=== PATIENT | female | born 1990 | race Caucasian/White ===

== ENCOUNTER 2022-02-18 11:33 | Inpatient (IN) | payer OTHER ==
[~2022-02-18] VITALS: Ht 180.3 cm; Wt 106.6 kg
[2022-02-18 11:55] VITALS: BP 122/79
[2022-02-18] MEDS ORDERED: PRENTAB9 PO (11:59)
[2022-02-18] MEDS ORDERED: HOME MED LIST COMPLETE! XX SCH (12:15)
[2022-02-18] MEDS ORDERED: LACTATED RINGER'S 1000 ML IV STA (15:08)
[2022-02-18] MEDS ORDERED: OXYTOCIN DRIP 30 UNITS in IV 1 EA IV PRN ×4 (15:10)
[2022-02-18] MEDS ORDERED: CARBOPROST TROMETHAMINE 250 MCG/ML AMP IM PRN (15:10)
[2022-02-18] MEDS ORDERED: TRANEXAMIC ACID INJection 1,000 MG in NS 100 ML IV PRN (15:10)
[2022-02-18] MEDS ORDERED: LIDOCAINE 1% MDV 20ML VIAL INFIL PRN (15:10)
[2022-02-18] MEDS ORDERED: OXYTOCIN INJ 10 UNITS/ML VIAL (J2590) IM PRN (15:10)
[2022-02-18] MEDS ORDERED: METHYLERGONOVINE MALEATE 0.2 MG/ML VIAL (J2210) IM PRN (15:10)
[2022-02-18 15:49] VITALS: BP 106/56
[2022-02-18 16:04] LABS: BASO # 0.1 10^3/uL (0.0-0.2); BASO % 0.4 % (0.0-1.0); EOS % 0.1 % (0.0-3.0); HEMATOCRIT 37.9 % (36.0-47.0); HEMOGLOBIN 12.4 g/dl (12.0-15.5); LYMPH # 1.2 10^3/uL (1.5-5.0); LYMPH % 6.3 % (24.0-44.0); MEAN CORPUSCULAR HGB CONC 32.7 g/dl (32.0-36.5); MEAN CORPUSCULAR VOLUME 88.8 fl (80.0-96.0); MONO # 0.9 10^3/uL (0.0-0.8); MONO % 4.9 % (2.0-8.0); NEUTROPHILS # 15.7 10^3/uL (1.5-8.5); NEUTROPHILS % 85.9 % (36.0-66.0); PLATELET COUNT, AUTOMATED 278 10^3/uL (150-450); RED BLOOD COUNT 4.27 10^6/uL (4.00-5.40); WHITE BLOOD COUNT 18.3 10^3/uL (4.0-10.0)
[2022-02-18] MEDS ORDERED: PROMETHAZINE 25MG/ML 1ML VIAL IV ONE (18:35)
[2022-02-18] MEDS ORDERED: BUTORPHANOL 2 MG/ML INJ (J0595) IV ONE (18:35)
[2022-02-18 19:05] VITALS: BP 109/57
[2022-02-18 20:52] VITALS: BP 114/57
[2022-02-18 21:40] VITALS: BP 113/56
[2022-02-18] MEDS ORDERED: LR 1,000 ML IV SCH (23:35)
[2022-02-18] MEDS ORDERED: OXYTOCIN DRIP 30 UNITS in IV 1 EA IV SCH (23:35)
[2022-02-19] VITALS (8 sets, daily range): BP systolic 99–132; BP diastolic 55–77
[2022-02-19] MEDS ORDERED: ACETAMINOPHEN TAB 650MG DOSE (2X325MG) PO PRN (05:30)
[2022-02-19] MEDS ORDERED: DIBUCAINE 1% OINTMENT 30GM TOP PRN (05:30)
[2022-02-19] MEDS ORDERED: LR 1,000 ML IV SCH (05:30)
[2022-02-19] MEDS ORDERED: OXYTOCIN DRIP 30 UNITS in IV 1 EA IV SCH ×4 (05:30)
[2022-02-19] MEDS ORDERED: ANUSOL HC CREAM 30GM TOP PRN (05:30)
[2022-02-19] MEDS ORDERED: ACETAMINOPHEN 500 MG TAB PO PRN (05:30)
[2022-02-19] MEDS ORDERED: IBUPROFEN 800 MG TAB PO PRN (05:30)
[2022-02-19] MEDS ORDERED: RHOGAM 300 MCG (1500 IU) INJ (J2790) IM SCH (05:30)
[2022-02-19] MEDS ORDERED: IBUPROFEN 600MG TAB PO PRN (05:30)
[2022-02-19] MEDS ORDERED: METHYLERGONOVINE MALEATE 0.2 MG TAB PO PRN (05:30)
[2022-02-19] MEDS: PRENATAL VITAMINS CHEWABLE TABLET PO SCH (10:03)
[2022-02-19] MEDS: DOCUSATE SODIUM 100MG CAPSULE PO SCH ×2 (10:03→20:44)
[2022-02-20 05:40] VITALS: BP 106/54
[2022-02-20 06:43] LABS: HEMATOCRIT 31.9 % (36.0-47.0); HEMOGLOBIN 10.3 g/dl (12.0-15.5); MEAN CORPUSCULAR HEMOGLOBIN 29.3 pg (27.0-33.0); MEAN CORPUSCULAR HGB CONC 32.3 g/dl (32.0-36.5); MEAN CORPUSCULAR VOLUME 90.6 fl (80.0-96.0); PLATELET COUNT, AUTOMATED 279 10^3/uL (150-450); RED BLOOD COUNT 3.52 10^6/uL (4.00-5.40); WHITE BLOOD COUNT 21.5 10^3/uL (4.0-10.0)
[2022-02-20] MEDS: DOCUSATE SODIUM 100MG CAPSULE PO SCH (09:08)
[2022-02-20] MEDS: PRENATAL VITAMINS CHEWABLE TABLET PO SCH (09:08)
[2022-02-21] MEDS ORDERED: MEASLES,MUMPS,RUBELLA VACCINE INJ (MMR-II) (90707) SC.IMMUN ONE (09:00)
== END 2022-02-20 13:55 | disposition home or self-care (01) | DRG 807 ==
LOC: M LDO 11:33 → M LDI 14:56 → M OBS 02-19 07:11
PROVIDERS: ADMIT Obstetrics & Gynecology; ATTEND Obstetrics & Gynecology
PROC: 10E0XZZ Delivery of Products of Conception, External Approach (ICD-10-PCS; principal; 2022-02-19)
DX: O69.82X0 Labor and delivery complicated by other cord entanglement, without compression, not applicable or unspecified (principal); Z37.0 Single live birth; Z3A.39 39 weeks gestation of pregnancy

== ENCOUNTER 2024-03-05 09:04 | Emergency (ER) | payer OTHER ==
[~2024-03-05] VITALS: Ht 180.3 cm; Wt 81.7 kg
[~2024-03-05 09:04] MED LIST: PRENTAB9 PO
[2024-03-05] MEDS ORDERED: ONDA-282 PO (09:18)
[2024-03-05] MEDS: ACETAMINOPHEN 325 MG TAB PO ONE (09:36)
[2024-03-05 09:41] LABS: VENOUS BASE EXCESS -1.9 (-2.0-2.0); VENOUS HCO3 24.2 MMOL/L (23.0-27.0); VENOUS O2 SATURATION 58.7 % (60.0-80.0); VENOUS PARTIAL PRESSURE CO2 46.3 mmHg (38.0-50.0); VENOUS PARTIAL PRESSURE O2 31.1 mmHg (30.0-50.0); VENOUS PH 7.336 UNITS (7.330-7.430); VENOUS TOTAL CO2 25.6 MMOL/L (24.0-28.0)
[2024-03-05 09:45] LABS: BASO % 0.3 % (0.0-1.0); EOS # 0.2 10^3/uL (0.0-0.5); EOS % 2.4 % (0.0-3.0); HEMATOCRIT 39.2 % (36.0-47.0); HEMOGLOBIN 12.9 g/dl (12.0-15.5); LYMPH # 2.1 10^3/uL (1.5-5.0); LYMPH % 33.2 % (24.0-44.0); MEAN CORPUSCULAR HEMOGLOBIN 29.5 pg (27.0-33.0); MEAN CORPUSCULAR HGB CONC 32.9 g/dl (32.0-36.5); MEAN CORPUSCULAR VOLUME 89.5 fl (80.0-96.0); MONO # 0.6 10^3/uL (0.0-0.8); MONO % 9.1 % (2.0-8.0); NEUTROPHILS # 3.4 10^3/uL (1.5-8.5); NEUTROPHILS % 54.5 % (36.0-66.0); PLATELET COUNT, AUTOMATED 234 10^3/uL (150-450); RED BLOOD COUNT 4.38 10^6/uL (4.00-5.40); WHITE BLOOD COUNT 6.3 10^3/uL (4.0-10.0)
[2024-03-05 10:13] LABS: BLOOD UREA NITROGEN 10 MG/DL (9-23); CARBON DIOXIDE LEVEL 26 MMOL/L (20-31); CHLORIDE LEVEL 109 MMOL/L (98-107); CREATININE FOR GFR 0.81 MG/DL (0.55-1.30); GLOMERULAR FILTRATION RATE > 60.0 (>60); GLUCOSE, FASTING 100 MG/DL (60-100); POTASSIUM SERUM 4.1 MMOL/L (3.5-5.1); SODIUM LEVEL 142 MMOL/L (136-145)
[2024-03-05 10:23] LABS: HCG, SERUM QUALITATIVE NEGATIVE (NEGATIVE)
[2024-03-05 11:14] VITALS: BP 100/62; TEMP 97.3; O2SAT 100
== END 2024-03-05 11:09 | disposition home or self-care (01) ==
LOC: EDBD 09:04 → M ED 09:04
DX: J68.8 Other respiratory conditions due to chemicals, gases, fumes and vapors (principal); Z79.83 Long term (current) use of bisphosphonates; Z79.899 Other long term (current) drug therapy; Y92.9 Unspecified place or not applicable; Y93.89 Activity, other specified; Y99.1 Military activity